=== PATIENT | male | born 1975 | race American Indian/Alaskan Native ===

== ENCOUNTER 2022-03-16 12:27 | Outpatient (CLI) | payer BC ==
[2022-03-16 13:48] LABS: Hematocrit 51.2 % (35.5-45.6); Hemoglobin 16.7 gm/dl (11.8-15.2); Mean Corpuscular HGB Conc 33 % (32-34); Mean Corpuscular Volume 91 fl (84-94); Platelet Count 339 K/mm3 (140-440); Red Blood Count 5.63 M/mm3 (3.65-5.03); Red Cell Distribution Width 12.8 % (13.2-15.2)
[2022-03-16 14:09] LABS: Alanine Aminotransferase 27 units/L (7-56); Albumin 4.6 g/dL (3.9-5); BUN/Creatinine Ratio 14; Blood Urea Nitrogen 11 mg/dL (9-20); Erythrocyte Sedimentation Rate 2 mm/Hr (0-20); Hemolysis Index 5
== END 2022-03-16 12:28 | disposition home or self-care (01) ==
LOC: LAB 12:27
PROVIDERS: ATTEND Specialist
DX: E11.42 Type 2 diabetes mellitus with diabetic polyneuropathy (principal); G61.9 Inflammatory polyneuropathy, unspecified
CPT/HCPCS: 36415; 80053; 82306; 82607; 83921; 84165; 84207; 84443; 85027; 85652; 86038; 86225; 86334; 86431; 86592; 86689